=== PATIENT | male | born 1935 | race Caucasian/White ===

== ENCOUNTER 2020-02-29 14:36 | Inpatient (IN) | payer MEDICARE, OTHER ==
--- NOTE | 2020-02-29 15:34 | ER Document Report ---
ED Dizziness/Weakness - General Chief Complaint: Low Blood Pressure Stated Complaint: DIZZINESS Time Seen by Provider: 02/29/20 15:09 TRAVEL OUTSIDE OF THE [place] IN LAST 30 DAYS: No - HPI Patient complains to provider of: Dizziness, Weakness Onset: Last week Notes: Patient is an 84-year-old male with a past medical history of COPD, mild aortic stenosis, diabetes who presents with dizziness. Patient states that he has been dizzy for "quite a while". He states it is worse when he stands up. He states that the other day he walked a short distance to the bathroom and was very weak and lowered himself to the ground. He did not hit his head. Denies recent illnesses. He went to his PCP today who sent patient to the ED as he was noted to have hypotension in the office. Per EMS, his blood pressure was 90/50 from their documentation. Received a fluid bolus. Blood pressure is within normal limits in the ER on arrival. Patient states that he has been cutting his blood pressure medicine in half as directed by the doctor. Last had an echo in 2019 which showed moderate aortic stenosis and an ejection fraction of 55%. - Related Data Allergies/Adverse Reactions: No Known Allergies Allergy (Unverified 07/25/14 20:40) Home Medications: Advair, Albuterol, Aspirin, Clopidogrel, Metoprolol, Proair, Prozac, Spiriva, Terazosin, Trelegy, Linzess Past Medical History - General Information source: Patient - Social History Smoking Status: Former Smoker Frequency of alcohol use: Occasional Family History: Reviewed & Not Pertinent - Immunizations Hx Pneumococcal Vaccination: 05/17/13 Review of Systems - Review of Systems Notes: CONSTITUTIONAL: No fever or weight loss. SKIN: No rash. HENT: No congestion, ear pain, or sore throat. EYES: No recent vision problems or eye pain. ENDOCRINE: No polyuria or polydipsia. CARDIOVASCULAR: No chest pain or edema. RESPIRATORY: No cough. Positive for exertional dyspnea. GASTROINTESTINAL: No abdominal pain, nausea, vomiting, bloody stools or diarrhea. GENITOURINARY: No dysuria. MUSCULOSKELETAL: No joint pain or swelling. LYMPHATIC: No swollen glands. NEUROLOGIC: No seizures. No headache, focal weakness or sensory changes. Positive for dizziness when standing. HEMATOLOGIC: No unusual bruising or bleeding. PSYCHIATRIC: No depression or anxiety. Physical Exam - Vital signs Vitals: Resp Pulse Ox 20 99 02/29/20 14:48 02/29/20 14:48 Interpretation: Normal - Notes Notes: VITAL SIGNS: Within normal limits. GENERAL: No acute distress, non-toxic appearance. HEAD: Normal with no signs of head trauma. EYES: EOMI, conjunctiva normal, no discharge. EARS: Hearing grossly intact. NOSE: Normal. NECK: Normal range of motion, no tenderness, supple, no lymphadenopathy, No adenopathy, no JVD. CHEST: Clear breath sounds bilaterally. No wheezes, rales, or rhonchi. CARDIAC: Regular rate and rhythm. VASCULAR: No Edema. ABDOMEN: Normal and soft with no tenderness GENITOURINARY: Normal, No tenderness LYMPATHTIC: No lymphadenopathy noted. MUSCULOSKELETAL: Good range of motion of all major joints. Extremities without clubbing, cyanosis or edema. NEUROLOGICAL: Alert and oriented x 3. No focal sensory or strength deficits. Speech normal. Follows commands appropriately. Moves all extremities equally. PSYCHIATRIC: Normal Affect, judgement and mood. SKIN: Normal appearance with no rashes or lesions. Course - Re-evaluation Re-evalutation: 02/29/20 15:36 Patient appears well on exam. He has no focal neurological deficits. No dizziness with horizontal eye movements. Patient denies being dizzy at rest. He states he gets short of breath and dizzy when walking. He does have a history of moderate aortic stenosis. It is possible that he has worsening of this. We will obtain a cardiac work-up and a head CT. Likely patient will need to be admitted for further work-up. Patient's second EKG also shows accelerated junctional escape rhythm. I discussed with cardiology who stated he may need to be weaned off his metoprolol. He continues to be asymptomatic unless he sits or stands. We did obtain orthostatic vitals with laying and sitting and they were normal. Patient was too dizzy to stand so I did not perform standing orthostatics. I discussed with the hospitalist for admission as his symptoms might be due to worsening of aortic stenosis versus bradycardia from metoprolol. He will be admitted for further work-up. 02/29/20 17:30 - Vital Signs Vital signs: Temp Pulse Resp BP Pulse Ox 98.2 F 57 L 14 137/74 H 98 02/29/20 20:03 02/29/20 14:54 02/29/20 19:01 02/29/20 19:01 02/29/20 19:01 - Laboratory Result Diagrams: 02/29/20 14:50 02/29/20 14:50 Laboratory results interpreted by me: 02/29/20 02/29/20 02/29/20 14:50 14:50 14:52 WBC 11.2 H RBC 3.82 L Hgb 11.9 L Hct 35.6 L RDW 14.5 H Sodium 136.2 L BUN 46 H Creatinine 2.54 H Est GFR ( Amer) 29 L Est GFR (MDRD) Non-Af 24 L Glucose 114 H POC Glucose 115 H Direct Bilirubin 0.6 H - Diagnostic Test Radiology reviewed: Image reviewed, Reports reviewed - EKG Interpretation by Me EKG shows normal: Sinus rhythm Rate: Normal When compared to previous EKG there are: No significant change Additional EKG results interpreted by me: 02/29/20 16:57 Sinus rhythm at a rate of 60 vs accelerated junctional escape rhythm. QTc 444. No acute ST changes. EKG is similar to previous 02/29/20 17:33 Repeat EKG shows accelerated junctional escape rhythm versus sinus rhythm with small P waves. QTc 439. No acute ST changes. Discharge - Discharge Clinical Impression: Dizziness, Weakness, Bradycardia Condition: Stable Disposition: ADMITTED INPATIENT Admitting Provider: Hazel (Hospitalist) Unit Admitted: Telemetry
--- NOTE | 2020-02-29 16:17 | RADIOLOGY REPORT (SQ) ---
EXAM DESCRIPTION: CHEST SINGLE VIEW IMAGES COMPLETED DATE/TIME: 02/29/2020 3:57 pm REASON FOR STUDY: weakness COMPARISON: 07/25/2014 TECHNIQUE: Single frontal radiographic view of the chest acquired. NUMBER OF VIEWS: One view. LIMITATIONS: Defibrillator pads. FINDINGS: LUNGS AND PLEURA: No pneumothorax. Mild increased interstitial thickening in the parahila r regions. No consolidation or pleural effusion. MEDIASTINUM AND HILAR STRUCTURES: Similar tortuosity of the thoracic aorta. HEART AND VASCULAR STRUCTURES: Stable. BONES: No acute findings. HARDWARE: None in the chest. OTHER: No other significant finding. IMPRESSION: Mild increased interstitial thickening in the parahilar regions. No consolidation or pl eural effusion. TECHNICAL DOCUMENTATION: JOB ID: [id number] [place]-[address] [employer]- All Rights Reserved Reading location - IP/workstation name: [email or web address]
--- NOTE | 2020-02-29 16:22 | RADIOLOGY REPORT (SQ) ---
EXAM DESCRIPTION: CT HEAD WITHOUT IMAGES COMPLETED DATE/TIME: 02/29/2020 4:09 pm REASON FOR STUDY: weakness COMPARISON: 02/02/2008. TECHNIQUE: Axial images acquired through the brain without intravenous contrast. Images reviewed wi th bone, brain and subdural windows. Additional sagittal and coronal reconstructions were generated. Images stored on PACS. All CT scanners at this facility use dose modulation, iterative reconstruction, and/or weight based d osing when appropriate to reduce radiation dose to as low as reasonably achievable (ALARA). [facility]: Dose Right [facility]: CareDose [facility]: Dose Right [facility]: Teradose 4D [facility]: Aut[employer] RADIATION DOSE: CT Rad equipment meets quality standard of care and radiation dose reduction techniq ues were employed. CTDIvol: 53.2 mGy. DLP: 1070 mGy-cm.mGy. LIMITATIONS: None. FINDINGS: VENTRICLES: Prominent. CEREBRUM: No masses. No hemorrhage. No midline shift. Areas of low density in the white matter mos t likely due to chronic micro-vascular ischemic change. No evidence for acute infarction. CEREBELLUM: No masses. No hemorrhage. No alteration of density. No evidence for acute infarction. EXTRAAXIAL SPACES: Age-related involutional change. No fluid collections. No masses. ORBITS AND GLOBE: No intra- or extraconal masses. Normal contour of globe without masses. CALVARIUM: No fracture. PARANASAL SINUSES: No fluid. Chronic deformity of the right maxillary sinus with mucous membrane thi ckening. SOFT TISSUES: No mass or hematoma. OTHER: No other significant finding. IMPRESSION: CHRONIC CHANGES OF ATROPHY AND MICROVASCULAR ISCHEMIA. NO ACUTE PROCESS. EVIDENCE OF ACUTE STROKE: NO. TECHNICAL DOCUMENTATION: JOB ID: [id number] Quality ID # [id number]: Final reports with documentation of one or more dose reduction techniques (e.g., Au tomated exposure control, adjustment of the mA and/or kV according to patient size, use of iterative reconstruction technique) 2010 [employer]- All Rights Reserved Reading location - IP/workstation name: [email or web address]
[2020-02-29 16:24] LABS: ABSOLUTE EOSINOPHILS # (AUTO) 0.1 10^3/uL (0.0-0.6); ABSOLUTE LYMPHOCYTES (AUTO) 2.5 10^3/uL (0.5-4.7); ABSOLUTE MONOCYTES (AUTO) 1.1 10^3/uL (0.1-1.4); ABSOLUTE NEUT (AUTO) 7.4 10^3/uL (1.7-8.2); BASOPHILS % (AUTO) 0.3 % (0-2); HEMATOCRIT 35.6 % (37.9-51.0); HEMOGLOBIN 11.9 g/dL (13.5-17.0); LYMPHOCYTES % (AUTO) 22.4 % (13-45); MEAN CORPUSCULAR HEMOGLOBIN 31.2 pg (27.0-33.4); MEAN CORPUSCULAR HGB CONC 33.5 g/dL (32.0-36.0); MEAN CORPUSCULAR VOLUME 93 fl (80-97); MONOCYTES % (AUTO) 9.7 % (3-13); PLATELET COUNT 219 10^3/uL (150-450); RED BLOOD COUNT 3.82 10^6/uL (4.35-5.55); RED CELL DISTRIBUTION WIDTH 14.5 % (11.5-14.0); SEGMENTED NEUTROPHILS % (AUTO) 66.6 % (42-78); TOTAL CELLS COUNTED % (AUTO) 100 %; WHITE BLOOD COUNT 11.2 10^3/uL (4.0-10.5)
[2020-02-29 16:46] LABS: ALBUMIN 3.6 g/dL (3.5-5.0); ALKALINE PHOSPHATASE 56 U/L (38-126); ANION GAP 8 (5-19); ASPARTATE AMINO TRANSFERASE 32 U/L (17-59); BILIRUBIN,DIRECT 0.6 mg/dL (0.0-0.4); BILIRUBIN,TOTAL 0.8 mg/dL (0.2-1.3); BLOOD UREA NITROGEN 46 mg/dL (7-20); CARBON DIOXIDE 23 mmol/L (22-30); CHLORIDE 105 mmol/L (98-107); GLUCOSE 114 mg/dL (75-110); POTASSIUM 4.9 mmol/L (3.6-5.0); TOTAL PROTEIN 6.4 g/dL (6.3-8.2)
[2020-02-29] MEDS ORDERED: MAG HYDROX/AL HYDROX/SIMETH SUSP 30 ML UDCUP PO PRN (19:37)
[2020-02-29] MEDS ORDERED: ONDANSETRON 4 MG TAB.RAPDIS PO PRN (19:37)
[2020-02-29] MEDS ORDERED: MAGNESIUM HYDROXIDE SUSP 30 ML UDCUP PO PRN (19:37)
[2020-02-29] MEDS ORDERED: ZOLPIDEM TARTRATE 5 MG TABLET PO PRN (19:37)
[2020-02-29] MEDS ORDERED: ACETAMINOPHEN 325 MG TABLET PO PRN (19:37)
[2020-02-29] MEDS ORDERED: ALBUTEROL SULFATE 0.083% NEB 2.5 MG/3 ML AMPUL NEB PRN (19:47)
[2020-02-29] MEDS ORDERED: IPRATROPIUM BROMIDE 0.02% NEB 0.5 MG/2.5 ML AMPUL NEB PRN (19:49)
[2020-02-29] MEDS ORDERED: ALBUTEROL SULFATE HFA (90 MCG/PUFF) 8 GM MDI IH PRN (19:51)
--- NOTE | 2020-02-29 20:48 | PDOC H&P ---
History of Present Illness Admission Date/PCP: 02/29/20 18:39 AMY MOREJON Patient complains of: Dizziness, weakness History of Present Illness: CORNELIO JOHNSON is a 84 year old male with PMHx of COPD, mild aortic stenosis, CKD, HTN, and diet controlled diabetes who presented to the ED on 02/29/2020 under his PCP's instruction as pt was found to be hypotension on presentation. Per EMS pt BP 90/50. Pt was at PCP for evaluation of dizziness and generalized weakness. Per patient he has felt dizzy for several months with a progressive increase in severity. He experiences symptoms primarily when moving from a seated position to standing position. Pt notes recent episode where he walked a short distance to the bathroom and felt so weak that he had to lower himself to the ground. Denies fall or head trauma. He is asymptomatic while at rest. He since has been using a walker to ambulate for support. He reports SOB with exertion, this is relatively new for him. Denies orthopnea or lower extremity swelling. He has had a non-productive cough for several months, denies recent illness. He does report a gradual weight gain, primarily in his abdomen, which he relates to his children feeding him too much food. Upon further questioning Denies fever, chills, chest pain, palpitations, lower extremity edema. abdominal pain, NVD, or urinary symptoms. Evaluation in the ED pt was found to have elevated WBC (11.2), and normocytic normochronic anemia with Hgb 11.9. Chemistries significant for hyponatremia (136.2), minimally elevated glucose (115), and acute kidney injury (BUN 46, Cr 2.54). Consecutive EKGs showed bradycardia with rate in 50s with accelerate junctional escape rhythm. CXR with mild increased interstitial thickening in the parahilar regions, without consolidation or pleural effusion. Head CT showed chronic changes of atrophy and microvascular ischemia, without acute changes or evidence of stroke. Pt was treated with IVF and the hospitalist team was contacted for further evaluation and treatment of patient. Pt's records from PCP were obtained and reviewed. Included in obtained reports was pt's echocardiogram from 03/29/2019 with the LVEF 55% with abnormal trileadlet aortic valve and moderate aortic stenosis. Past Medical History Cardiac Medical History: Reports: Coronary Artery Disease, Hyperlipidema, Hypertension Pulmonary Medical History: Reports: Chronic Obstructive Pulmonary Disease (COPD) Neurological Medical History: Denies: Hemorrhagic CVA, Ischemic CVA Endocrine Medical History: Reports: Diabetes Mellitus Type 2 - diet controlled Renal/ Medical History: Reports: Chronic Kidney Disease GI Medical History: Denies: Gastroesophageal Reflux Disease Musculoskeltal Medical History: Denies: Fibromyalgia Psychiatric Medical History: Denies: Tobacco Dependency Past Surgical History Past Surgical History: Denies: Internal Defibrillator, Pacemaker Social History Information Source: Patient Lives with: Alone - Children alternate spending the night with him Smoking Status: Former Smoker Electronic Cigarette use?: No Frequency of Alcohol Use: None Hx Recreational Drug Use: No Drugs: None Hx Prescription Drug Abuse: No - Advance Directive Resuscitation Status: Do Not Resuscitate Family History Family History: CAD, Other - Heart disease Parental Family History Reviewed: Yes Children Family History Reviewed: Yes Sibling(s) Family History Reviewed.: Yes Medication/Allergy Home Medications: Acetaminophen [Tylenol] 650 mg PO Q4 07/26/14 Alprazolam [Xanax 0.5 mg Tablet] 0.5 mg PO DAILY PRN 07/26/14 Aspirin [Aspirin 81 mg Chewable Tablet] 81 mg PO DAILY 07/26/14 Clopidogrel Bisulfate [Plavix 75 mg Tablet] 75 mg PO DAILY 07/26/14 Hydrochlorothiazide [Hydrodiuril 25 mg Tablet] 25 mg PO DAILY 07/26/14 Lansoprazole [Prevacid] 15 mg PO DAILY 07/26/14 Metoprolol Succinate [Toprol Xl 50 mg Tab.sr] 50 mg PO DAILY 07/26/14 Mirtazapine 15 mg PO DAILY 07/26/14 Nifedipine [Nifedipine ER] 30 mg PO BID 07/26/14 Pravastatin Sodium [Pravachol] 40 mg PO HSP 07/26/14 Sitagliptin Phosphate [Januvia 50 mg Tablet] 50 mg PO DAILY 07/26/14 Terazosin HCl 1 mg PO BID 07/26/14 Fluticasone/Salmeterol [Advair 250-50 Diskus 14 Dose/Diskus] 1 inh IH Q12 #0 inhaler 07/28/14 Guaifenesin [Mucinex Sr 600 mg Tablet.sa] 1,200 mg PO Q12 #0 tablet.sa 07/28/14 Isosorbide Mononitrate [Isosorbide Mononitrate ER] 60 mg PO DAILY #0 tab.er.24h 07/28/14 Levofloxacin [Levaquin 750 mg Tablet] 750 mg PO Q2D@2200 #0 tablet 07/28/14 Allergies/Adverse Reactions: No Known Allergies Allergy (Unverified 07/25/14 20:40) Review of Systems Constitutional: PRESENT: weakness, weight gain. ABSENT: anorexia, chills, fatigue, fever(s), headache(s) Eyes: PRESENT: visual disturbances Ears: ABSENT: hearing changes Nose, Mouth, and Throat: ABSENT: headache(s) Cardiovascular: PRESENT: dyspnea on exertion. ABSENT: chest pain, edema, orthropnea, palpitations Respiratory: PRESENT: cough, dyspnea. ABSENT: sputum Gastrointestinal: ABSENT: abdominal pain, bloating, heartburn, nausea, vomiting Genitourinary: ABSENT: dysuria, hematuria Musculoskeletal: PRESENT: muscle weakness - lower extremity weakness. ABSENT: back pain Integumentary: ABSENT: diaphoresis, lesions, pruritus Neurological: PRESENT: dizziness, weakness. ABSENT: abnormal movements, abnormal speech, confusion, convulsions, frequent falls, numbness, paresthesias, syncope, tingling, tremor(s) Psychiatric: ABSENT: homidical ideation, suicidal ideation Endocrine: ABSENT: cold intolerance, heat intolerance Hematologic/Lymphatic: ABSENT: easy bleeding, easy bruising Physical Exam Vital Signs: Temp Pulse Resp BP Pulse Ox 98.1 F 57 L 14 137/74 H 98 02/29/20 14:54 02/29/20 14:54 02/29/20 19:01 02/29/20 19:01 02/29/20 19:01 Intake & Output 02/28/20 02/29/20 03/01/20 06:59 06:59 06:59 Weight 108.6 kg General appearance: PRESENT: no acute distress, cooperative, hard of hearing, obese Head exam: PRESENT: atraumatic, normocephalic Eye exam: PRESENT: conjunctiva pink, EOMI. ABSENT: scleral icterus Ear exam: PRESENT: normal external ear exam, TM's normal bilaterally. ABSENT: bleeding, drainage Mouth exam: PRESENT: dry mucosa, tongue midline Neck exam: PRESENT: full ROM. ABSENT: JVD, lymphadenopathy, tenderness Respiratory exam: PRESENT: clear to auscultation carlos a. ABSENT: rhonchi, wheezes Cardiovascular exam: PRESENT: RRR Pulses: PRESENT: normal radial pulses GI/Abdominal exam: PRESENT: normal bowel sounds, soft. ABSENT: distended, firm, guarding, tenderness Extremities exam: PRESENT: full ROM. ABSENT: calf tenderness, clubbing, pedal edema Musculoskeletal exam: PRESENT: ambulatory, full ROM. ABSENT: deformity, dislocation Neurological exam: PRESENT: alert, awake, oriented to person, oriented to place, oriented to time, oriented to situation, CN II-XII grossly intact. ABSENT: altered, motor sensory deficit Psychiatric exam: PRESENT: appropriate affect, normal mood. ABSENT: anxious Skin exam: PRESENT: dry, intact, warm. ABSENT: pallor, rash Results Laboratory Results: 02/29/20 14:50 02/29/20 14:50 02/29/20 02/29/20 14:50 14:50 WBC 11.2 H RBC 3.82 L Hgb 11.9 L Hct 35.6 L MCV 93 MCH 31.2 MCHC 33.5 RDW 14.5 H Plt Count 219 Seg Neutrophils % 66.6 Sodium 136.2 L Potassium 4.9 Chloride 105 Carbon Dioxide 23 Anion Gap 8 BUN 46 H Creatinine 2.54 H Est GFR ( Amer) 29 L Glucose 114 H Calcium 9.0 Magnesium 2.1 Total Bilirubin 0.8 AST 32 Alkaline Phosphatase 56 Total Protein 6.4 Albumin 3.6 02/29/20 14:50 Troponin I < 0.012 Impressions: Chest X-Ray 02/29/20 15:23 IMPRESSION: Mild increased interstitial thickening in the parahilar regions. No consolidation or pleural effusion. Head CT 02/29/20 15:23 IMPRESSION: CHRONIC CHANGES OF ATROPHY AND MICROVASCULAR ISCHEMIA. NO ACUTE PROCESS. EVIDENCE OF ACUTE STROKE: NO. Assessment and Plan - Diagnosis (1) Dizziness Is this a current diagnosis for this admission?: Yes Plan: Etiology unknown at this time. Ddx: Worsening of aortic stenosis vs bradycardia (secondary to metoprolol) vs dehydration vs orthostatic hypotension CT negative Echo from 03/2019 reviewed. Repeat echocardiogram ordered. Cardiology consulted, on board. Will decrease metoprolol gradually, with plan to wean off. (2) Weakness Is this a current diagnosis for this admission?: Yes Plan: Etiology unknown at this time. Ddx: Worsening of aortic stenosis vs bradycardia (secondary to metoprolol) Investigation as discussed above PT consulted, will evaluate OT consulted, will evaluate (3) Bradycardia Is this a current diagnosis for this admission?: Yes Plan: HR in the 50s on exam Cardiology consulted, on board Wean off Metoprolol Monitor with telemetry (4) Leukocytosis Qualifiers: Leukocytosis type: unspecified Qualified Code(s): D72.829 - Elevated white blood cell count, unspecified Is this a current diagnosis for this admission?: Yes Plan: Minimally elevated WBC 11.2 CXR without consolidation UA pending UC pending BC pending Pt afebrile at this time Repeat CBC in the morning (5) Acute kidney injury superimposed on chronic kidney disease Is this a current diagnosis for this admission?: Yes Plan: BUN 46, Cr 2.54 Previous records reviewed Baseline BUN ~30 Baseline Cr ~1.60 Suspect secondary to dehydration IVF Monitor on chemistries in the morning (6) Aortic stenosis with trileaflet valve Is this a current diagnosis for this admission?: Yes Plan: As noted on most recent Echo 03/2019 Potential cause of symptoms if worsening Repeat echo pending Cardiology on board (7) CAD (coronary artery disease) Qualifiers: Coronary Disease-Associated Artery/Lesion type: [place] artery [place] vs. transplanted heart: [place] heart Associated angina: without angina Qualified Code(s): I25.10 - Atherosclerotic heart disease of [place] coronary artery with out angina pectoris Is this a current diagnosis for this admission?: Yes Plan: Hx of CAD Currently asymptomatic Resume home medications at this time (8) HLD (hyperlipidemia) Qualifiers: Hyperlipidemia type: moderate mixed hyperlipidemia not requiring statin therapy Qualified Code(s): E78.2 - Mixed hyperlipidemia Is this a current diagnosis for this admission?: Yes Plan: Resume home dose statin (9) HTN (hypertension) Qualifiers: Hypertension type: essential hypertension Qualified Code(s): I10 - Essential (primary) hypertension Is this a current diagnosis for this admission?: Yes Plan: Reportedly hypotensive on exam at PCPs office BP in 130s/80s consistently Per pt, PCP is weaning him off BP medications at this time Will hold BP medications Closely monitor (10) Diet-controlled diabetes mellitus Is this a current diagnosis for this admission?: Yes Plan: Per pt hx of DM, not currently treating with medications Hem A1c ordered Routine ACCU-checks Pt placed on diabetic diet - Time Time Spent with patient: 35 or more minutes Medications reviewed and adjusted accordingly: Yes Anticipated Discharge Disposition: Home with Home Health Anticipated Discharge Timeframe: within 72 hours - Inpatient Certification Based on my medical assessment, after consideration of the patient's comorbidities, presenting symptoms, or acuity I expect that the services needed warrant INPATIENT care.: Yes I certify that my determination is in accordance with my understanding of Medicare's requirements for reasonable and necessary INPATIENT services [42 CFR 412.3e].: Yes Medical Necessity: Failure to Improve With Outpatient Therapy, Significant Comorbidiites Make Outpatient Treatment Too Risky, Need Close Monitoring Due to Risk of Patient Decompensation, Need For Continuous Telemetry Monitoring, Risk of Complication if Not Cared For in Hospital, Risk of Diagnosis Which Will Require Inpatient Eval/Care/Monitoring Post Hospital Care: D/C or Transfer Summary
[2020-02-29 21:50] LABS: APPEARANCE,URINE CLEAR; BILIRUBIN,URINE NEGATIVE (NEGATIVE); COLOR,URINE YELLOW; GLUCOSE, URINE NEGATIVE (NEGATIVE); KETONES,URINE NEGATIVE (NEGATIVE); LEUKOCYTE ESTERASE,URINE NEGATIVE (NEGATIVE); NITRITE,URINE NEGATIVE (NEGATIVE); PROTEIN,URINE NEGATIVE (NEGATIVE); URINE SPECIFIC GRAVITY 1.011; UROBILINOGEN,URINE NEGATIVE mg/dL (<2.0)
--- NOTE | 2020-02-29 21:51 | EKG REPORT ---
SEVERITY:- ABNORMAL ECG - SINUS RHYTHM : Confirmed by: Yaritza De Jesus 29-Feb-2020 21:50:57
--- NOTE | 2020-02-29 21:51 | EKG REPORT ---
SEVERITY:- ABNORMAL ECG - SINUS RHYTHM BORDERLINE T ABNORMALITIES, ANT-LAT LEADS : Confirmed by: Yaritza De Jesus 29-Feb-2020 21:50:40
[2020-02-29] MEDS: MONTELUKAST SODIUM 10 MG TABLET PO SCH (22:33)
[2020-02-29] MEDS: ATORVASTATIN CALCIUM 40 MG TABLET PO SCH (22:33)
[2020-02-29] MEDS: HEPARIN SOD (PORCINE) 5,000 UNIT/ML 1 ML VIAL SUBCUT SCH (22:33)
[2020-03-01] MEDS ORDERED: HYDRALAZINE HCL INJ/PF 20 MG/1 ML SDV IV PRN (01:17)
[2020-03-01] MEDS: RINGERS SOLUTION,LACTATED 1,000 ML IV PRN ×3 (01:51→19:00)
[2020-03-01] MEDS: HEPARIN SOD (PORCINE) 5,000 UNIT/ML 1 ML VIAL SUBCUT SCH ×3 (05:25→21:54)
[2020-03-01 06:10] LABS: HEMATOCRIT 36.8 % (37.9-51.0); HEMOGLOBIN 12.7 g/dL (13.5-17.0); MEAN CORPUSCULAR HEMOGLOBIN 31.9 pg (27.0-33.4); MEAN CORPUSCULAR HGB CONC 34.6 g/dL (32.0-36.0); MEAN CORPUSCULAR VOLUME 92 fl (80-97); PLATELET COUNT 204 10^3/uL (150-450); RED BLOOD COUNT 3.98 10^6/uL (4.35-5.55); RED CELL DISTRIBUTION WIDTH 14.8 % (11.5-14.0); WHITE BLOOD COUNT 10.7 10^3/uL (4.0-10.5)
[2020-03-01 06:33] LABS: ANION GAP 9 (5-19); BLOOD UREA NITROGEN 47 mg/dL (7-20); CALCIUM 9.2 mg/dL (8.4-10.2); CARBON DIOXIDE 24 mmol/L (22-30); CHLORIDE 104 mmol/L (98-107); GLUCOSE 101 mg/dL (75-110); POTASSIUM 4.6 mmol/L (3.6-5.0)
[2020-03-01] MEDS ORDERED: INFLUENZA QUAD (6MOS+) 2020-21 VAC 0.5 ML SYR IM ONE (08:00)
[2020-03-01] MEDS: ASPIRIN 81 MG TABLET, CHEWABLE PO SCH (10:05)
[2020-03-01] MEDS: CLOPIDOGREL BISULFATE 75 MG TABLET PO SCH (10:05)
[2020-03-01] MEDS: FLUTICASONE/UMECLIDIN/VILANTER 100-62.5-25 MCG/DOSE IH SCH (10:07)
--- NOTE | 2020-03-01 13:22 | PDOC CONSULTATION ---
Consultation Consult Date: 03/01/20 Attending physician:: SHAW TREJO Provider Consulted: FOSTER AGUILAR Consult reason:: Dizziness, aortic stenosis History of Present Illness Admission Date/PCP: 02/29/20 18:39 AMY MOREJON Patient complains of: Dizziness History of Present Illness: CORNELIO JOHNSON is a 84 year old male With the following active problems 1. Aortic stenosis 2. Systemic hypertension 3. Dyslipidemia Patient was sent in from the primary care physician's office with complaints of dizziness. Patient is not a great historian. He is not unable to relate any symptoms at the moment. He indicates that this dizziness has improved. Overnight telemetry has been unremarkable for any pauses or profound bradycardia. His resting heart rate and average heart rate is probably in the mid 40s to 50 bpm range His EKG shows some conduction disease with first-degree AV block. Apparently he is known to have mild aortic stenosis. There is an echocardiogram from 2015 which demonstrates this and his ejection fraction at that time was preserved. Patient denies any history of syncope or presyncope He does not smoke cigarettes No familial illnesses chronicled. Review of systems positive for dizziness Negative for chest pain or dyspnea. Negative for palpitations. Past Medical History Cardiac Medical History: Reports: Coronary Artery Disease, Hyperlipidema, Hypertension Pulmonary Medical History: Reports: Chronic Obstructive Pulmonary Disease (COPD) Neurological Medical History: Denies: Hemorrhagic CVA, Ischemic CVA Endocrine Medical History: Reports: Diabetes Mellitus Type 2 - diet controlled Renal/ Medical History: Reports: Chronic Kidney Disease GI Medical History: Denies: Gastroesophageal Reflux Disease Musculoskeltal Medical History: Denies: Fibromyalgia Psychiatric Medical History: Denies: Depression, Tobacco Dependency Past Surgical History Past Surgical History: Denies: Internal Defibrillator, Pacemaker Social History Lives with: Alone - Children alternate spending the night with him Smoking Status: Former Smoker Cigarettes Packs Per Day: 1 Electronic Cigarette use?: No Cigars Per Day: 1 Number of Years Smokin Last Time Smoked: 1998 Frequency of Alcohol Use: Occasional Hx Recreational Drug Use: No Drugs: None Hx Prescription Drug Abuse: No - Advance Directive Resuscitation Status: Do Not Resuscitate Family History Family History: Reviewed & Not Pertinent Parental Family History Reviewed: Yes - No familial illnesses Children Family History Reviewed: NA Sibling(s) Family History Reviewed.: NA Medication/Allergy Home Medications: Acetaminophen [Tylenol] 650 mg PO Q4 07/26/14 Aspirin [Aspirin 81 mg Chewable Tablet] 81 mg PO DAILY 07/26/14 Clopidogrel Bisulfate [Plavix 75 mg Tablet] 75 mg PO DAILY 07/26/14 Pravastatin Sodium [Pravachol] 40 mg PO HSP 07/26/14 Terazosin HCl 2 mg PO BID 07/26/14 Albuterol Sulfate [Proair Hfa Inhalation Aerosol 8.5 gm Mdi] 1 puff IH Q4 PRN 02/29/20 Albuterol Sulfate [Ventolin 0.083% Neb 2.5 mg/3 ml Ampul] 1 vial NEB Q6 02/29/20 Fluoxetine HCl [Prozac 20 mg Capsule] 20 mg PO DAILY 02/29/20 Fluticasone/Umeclidin/Vilanter [Trelegy 100-62.5-25 Mcg Ellipta 14 Dose/Dpi] 1 each PO DAILY 02/29/20 Ipratropium/Albuterol Sulfate [Duoneb 3 ml Ampul] 3 ml NEB RTQ6 02/29/20 Linaclotide [Linzess] 72 mcg PO DAILY 02/29/20 Metoprolol Succinate [Toprol Xl 25 mg Tab.sr] 25 mg PO DAILY 02/29/20 Montelukast Sodium [Singulair 10 mg Tablet] 10 mg PO QHS 02/29/20 Allergies/Adverse Reactions: No Known Allergies Allergy (Unverified 07/25/14 20:40) Review of Systems Cardiovascular: ABSENT: as per HPI, chest pain, dyspnea on exertion, edema, orthropnea, palpitations, other Respiratory: ABSENT: as per HPI, cough, dyspnea, hemoptysis, sputum, other Gastrointestinal: ABSENT: as per HPI, abdominal pain, bloating, coffee ground emesis, constipation, diarrhea, dysphagia, heartburn, hematemesis, hematochezia, melena, nausea, vomiting, other Neurological: PRESENT: other - Dizziness is reported Physical Exam Vital Signs: Temp Pulse Resp BP Pulse Ox 97.6 F 65 20 143/86 H 99 03/01/20 11:00 03/01/20 11:00 03/01/20 11:00 03/01/20 11:00 03/01/20 11:00 Intake & Output 02/29/20 03/01/20 03/02/20 06:59 06:59 06:59 Intake Total 1000 Output Total 200 Balance -200 1000 Weight 104.7 kg General appearance: PRESENT: no acute distress, cooperative, obese, well- developed, well-nourished Head exam: PRESENT: atraumatic, normocephalic Eye exam: PRESENT: conjunctiva pink, EOMI Mouth exam: PRESENT: moist Respiratory exam: PRESENT: symmetrical, unlabored Cardiovascular exam: PRESENT: RRR, +S1, +S2 Pulses: PRESENT: normal radial pulses GI/Abdominal exam: PRESENT: soft Rectal exam: PRESENT: deferred Neurological exam: PRESENT: alert, awake, oriented to person, oriented to place, oriented to time, oriented to situation Psychiatric exam: PRESENT: appropriate affect Skin exam: PRESENT: dry, intact, normal color Results Laboratory Results: 03/01/20 05:32 03/01/20 05:32 02/29/20 02/29/20 02/29/20 14:50 14:50 21:18 WBC 11.2 H RBC 3.82 L Hgb 11.9 L Hct 35.6 L MCV 93 MCH 31.2 MCHC 33.5 RDW 14.5 H Plt Count 219 Seg Neutrophils % 66.6 Sodium 136.2 L Potassium 4.9 Chloride 105 Carbon Dioxide 23 Anion Gap 8 BUN 46 H Creatinine 2.54 H Est GFR ( Amer) 29 L Glucose 114 H Calcium 9.0 Magnesium 2.1 Total Bilirubin 0.8 AST 32 Alkaline Phosphatase 56 Total Protein 6.4 Albumin 3.6 TSH Urine Color YELLOW Urine Appearance CLEAR Urine pH 6.0 Ur Specific [place] 1.011 Urine Protein NEGATIVE Urine Glucose (UA) NEGATIVE Urine Ketones NEGATIVE Urine Blood NEGATIVE Urine Nitrite NEGATIVE Ur Leukocyte Esterase NEGATIVE Urine WBC (Auto) 0 03/01/20 03/01/20 03/01/20 05:32 05:32 05:32 WBC 10.7 H RBC 3.98 L Hgb 12.7 L Hct 36.8 L MCV 92 MCH 31.9 MCHC 34.6 RDW 14.8 H Plt Count 204 Seg Neutrophils % Sodium 136.8 L Potassium 4.6 Chloride 104 Carbon Dioxide 24 Anion Gap 9 BUN 47 H Creatinine 2.44 H Est GFR ( Amer) 31 L Glucose 101 Calcium 9.2 Magnesium 2.1 Total Bilirubin AST Alkaline Phosphatase Total Protein Albumin TSH 2.53 Urine Color Urine Appearance Urine pH Ur Specific [place] Urine Protein Urine Glucose (UA) Urine Ketones Urine Blood Urine Nitrite Ur Leukocyte Esterase Urine WBC (Auto) 02/29/20 14:50 Troponin I < 0.012 EKG Comments: Twelve-lead EKG 02/29/2020. Independently viewed by me. Sinus rhythm, 60 bpm, first-degree AV block, IVCD, QTC 444 ms Twelve-lead EKG 02/29/2020 1712 Sinus bradycardia, first-degree AV block, IVCD, QTC is 439 ms Transthoracic echocardiogram images were reviewed The aortic valve has probably mild stenosis. Peak aortic velocity is 103 m/s and a mean gradient is approximately 14 mmHg. This is suggestive of mild aortic stenosis. Visually the mitral valve appears to be stenotic. The The left ventricle ejection fraction is preserved. The right ventricle is not adequately visualized but appears to have normal fu nction The left atrium is mildly enlarged There is no pericardial effusion Impressions: Chest X-Ray 02/29/20 15:23 IMPRESSION: Mild increased interstitial thickening in the parahilar regions. No consolidation or pleural effusion. Head CT 02/29/20 15:23 IMPRESSION: CHRONIC CHANGES OF ATROPHY AND MICROVASCULAR ISCHEMIA. NO ACUTE PROCESS. EVIDENCE OF ACUTE STROKE: NO. Assessment & Plan - Diagnosis (1) Bradycardia Is this a current diagnosis for this admission?: Yes Plan: Bradycardia with heart rates mostly in the 50s and 40 bpm range This is unlikely to cause dizziness. EKG with mild conduction disease with first-degree AV block and IVCD which is also mild Aortic stenosis is mild by echocardiogram the mitral stenosis also visually appears to be mild although gradients were not performed across the valve. Any any rate would recommend that the beta-veronica be discontinued as more severe bradycardia may have contributed to dizziness In general if medication was being used for treatment of hypertension would recommend hydralazine or amlodipine for the same. I can arrange for an outpatient Holter monitor. (2) Dizziness Is this a current diagnosis for this admission?: Yes Plan: Dizziness is reported Orthostatic vital signs are pending at this time Would recommend discontinuing beta-blockade Stenotic lesions across the aortic valve appear to be mild and may not have contributed to these episodes. The mitral valve also appears to be stenotic but the Doppler interrogation is suboptimal. (3) HLD (hyperlipidemia) Qualifiers: Hyperlipidemia type: moderate mixed hyperlipidemia not requiring statin therapy Qualified Code(s): E78.2 - Mixed hyperlipidemia Is this a current diagnosis for this admission?: Yes Plan: Continue statin (4) HTN (hypertension) Qualifiers: Hypertension type: essential hypertension Qualified Code(s): I10 - Essential (primary) hypertension Is this a current diagnosis for this admission?: Yes Plan: For essential hypertension avoid beta-blockers and calcium channel blockers. Would prefer use of hydralazine or amlodipine which will not usually have negative chronotropic effects.
--- NOTE | 2020-03-01 16:33 | PDOC PROGRESS REPORT ---
Subjective Progress Note for:: 03/01/20 Subjective:: Patient seen on morning rounds. He is resting in the in his room. He states that is not very comfortable and proceeds to get up out of the chair ambulate to the restroom then to the bed without any reported dizziness or weakness. Asked how he is feeling patient states that overall he feels well. He continues to experience weakness/dizziness though states this is improved from yesterday. He mentions that he was seen by physical therapy earlier today and was able to walk the halls. He did note shortness of breath while ambulating, stating that this is just been normal for him lately. He inquires about when he will be able to go home and states that he did not sleep well at the bed last night. Otherwise denies fever, chills, headache, chest pain, palpitation, orthopnea, lower extremity swelling, abdominal pain, nausea/vomiting/diarrhea. Discussed case with patient's nurse. Nurse states that she has seen patient ambulate multiple occasions, sometimes using his walker sometimes not, denies patient complaining of dizziness. Reason For Visit: DIZZINESS,WEAKNESS Physical Exam Vital Signs: Temp Pulse Resp BP Pulse Ox 97.6 F 65 20 143/86 H 99 03/01/20 11:00 03/01/20 11:00 03/01/20 11:00 03/01/20 11:00 03/01/20 11:00 Intake & Output 02/29/20 03/01/20 03/02/20 06:59 06:59 06:59 Intake Total 1000 Output Total 200 Balance -200 1000 Weight 104.7 kg General appearance: PRESENT: no acute distress, cooperative, obese, other - Pleasant 84-year-old male. Head exam: PRESENT: atraumatic, normocephalic Eye exam: PRESENT: conjunctiva pink. ABSENT: conjunctiva pale, scleral icterus Mouth exam: PRESENT: moist, tongue midline Neck exam: PRESENT: full ROM. ABSENT: JVD, lymphadenopathy, tenderness Respiratory exam: PRESENT: clear to auscultation carlos a, symmetrical, unlabored. ABSENT: retraction, rhonchi, tachypnea, wheezes Cardiovascular exam: PRESENT: RRR, +S1, +S2 Pulses: PRESENT: normal radial pulses GI/Abdominal exam: PRESENT: normal bowel sounds, soft. ABSENT: distended, tenderness Extremities exam: PRESENT: full ROM. ABSENT: clubbing, pedal edema Musculoskeletal exam: PRESENT: ambulatory, full ROM. ABSENT: deformity, disl ocation Neurological exam: PRESENT: alert, awake, oriented to person, oriented to place, oriented to time, oriented to situation, CN II-XII grossly intact. ABSENT: altered, motor sensory deficit Psychiatric exam: PRESENT: appropriate affect, normal mood Skin exam: PRESENT: dry, intact, warm Results Laboratory Results: 03/01/20 05:32 03/01/20 05:32 02/29/20 02/29/20 02/29/20 14:50 14:50 21:18 WBC 11.2 H RBC 3.82 L Hgb 11.9 L Hct 35.6 L MCV 93 MCH 31.2 MCHC 33.5 RDW 14.5 H Plt Count 219 Seg Neutrophils % 66.6 Sodium 136.2 L Potassium 4.9 Chloride 105 Carbon Dioxide 23 Anion Gap 8 BUN 46 H Creatinine 2.54 H Est GFR ( Amer) 29 L Glucose 114 H Calcium 9.0 Magnesium 2.1 Total Bilirubin 0.8 AST 32 Alkaline Phosphatase 56 Total Protein 6.4 Albumin 3.6 TSH Urine Color YELLOW Urine Appearance CLEAR Urine pH 6.0 Ur Specific [place] 1.011 Urine Protein NEGATIVE Urine Glucose (UA) NEGATIVE Urine Ketones NEGATIVE Urine Blood NEGATIVE Urine Nitrite NEGATIVE Ur Leukocyte Esterase NEGATIVE Urine WBC (Auto) 0 03/01/20 03/01/20 03/01/20 05:32 05:32 05:32 WBC 10.7 H RBC 3.98 L Hgb 12.7 L Hct 36.8 L MCV 92 MCH 31.9 MCHC 34.6 RDW 14.8 H Plt Count 204 Seg Neutrophils % Sodium 136.8 L Potassium 4.6 Chloride 104 Carbon Dioxide 24 Anion Gap 9 BUN 47 H Creatinine 2.44 H Est GFR ( Amer) 31 L Glucose 101 Calcium 9.2 Magnesium 2.1 Total Bilirubin AST Alkaline Phosphatase Total Protein Albumin TSH 2.53 Urine Color Urine Appearance Urine pH Ur Specific [place] Urine Protein Urine Glucose (UA) Urine Ketones Urine Blood Urine Nitrite Ur Leukocyte Esterase Urine WBC (Auto) 02/29/20 14:50 Troponin I < 0.012 Impressions: Chest X-Ray 02/29/20 15:23 IMPRESSION: Mild increased interstitial thickening in the parahilar regions. No consolidation or pleural effusion. Head CT 02/29/20 15:23 IMPRESSION: CHRONIC CHANGES OF ATROPHY AND MICROVASCULAR ISCHEMIA. NO ACUTE PROCESS. EVIDENCE OF ACUTE STROKE: NO. Assessment and Plan - Diagnosis (1) Orthostatic hypotension Is this a current diagnosis for this admission?: Yes (2) Orthostatic dizziness Is this a current diagnosis for this admission?: Yes (3) Weakness Is this a current diagnosis for this admission?: Yes (4) Bradycardia Is this a current diagnosis for this admission?: Yes (5) Leukocytosis Qualifiers: Leukocytosis type: unspecified Qualified Code(s): D72.829 - Elevated white blood cell count, unspecified Is this a current diagnosis for this admission?: Yes (6) Acute kidney injury superimposed on chronic kidney disease Is this a current diagnosis for this admission?: Yes (7) Aortic stenosis with trileaflet valve Is this a current diagnosis for this admission?: Yes (8) CAD (coronary artery disease) Qualifiers: Coronary Disease-Associated Artery/Lesion type: [place] artery [place] vs. transplanted heart: [place] heart Associated angina: without angina Qualified Code(s): I25.10 - Atherosclerotic heart disease of [place] coronary artery without angina pectoris Is this a current diagnosis for this admission?: Yes (9) HLD (hyperlipidemia) Qualifiers: Hyperlipidemia type: moderate mixed hyperlipidemia not requiring statin ther apy Qualified Code(s): E78.2 - Mixed hyperlipidemia Is this a current diagnosis for this admission?: Yes (10) HTN (hypertension) Qualifiers: Hypertension type: essential hypertension Qualified Code(s): I10 - Essential (primary) hypertension Is this a current diagnosis for this admission?: Yes (11) Diet-controlled diabetes mellitus Is this a current diagnosis for this admission?: Yes - Plan Summary Summary: 03/01/2020 Orthostatic hypotension/dizziness: Fall in 10mmHg diastolic pressure Orthostatic pressures: Supine 140/88 -> Seared 118/85 -> Standing 131/85 Dizziness has improved with rehydration Weakness: Patient was evaluated by physical therapy, recommend continued outpatient PT. Discussed with patient and his daughter, patient's daughter request home health physical therapy. [facility] used [facility]. Bradycardia: Bradycardia with heart rate in the 50s and 40s bpm range. Patient evaluated by [facility]. Reviewed note and discussed case in detail. - EKG with mild conduction disease with first-degree AV block and IVCD. - Recommends avoiding negative inotropic medications - Recommends cardiology follow-up with outpatient Holter monitor Leukocytosis: Minimally elevated WBC 11.2 -> 10.7 CXR without consolidation, UA negative, UC no growth in 24 hours. BC pending. Patient afebrile, no sign acute infection on exam or labs thus far. Acute kidney injury superimposed on chronic kidney disease: BUN 47 (Baseline BUN ~30), Cr 2.44 (Baseline Cr ~1.60) Likely secondary to dehydration. Continue with IV fluids. Continue to monitor morning chemistries. Aortic stenosis with trileaflet mild stenosis Echo 02/29/[address] Lamar: Both the aortic and mitral valve are mildly stenotic. LVEF preserved. Discussed pt's case with Dr. Lamar. He does not believe above noted stenosis are contributing to pt's dizziness. CAD (coronary artery disease): Hx of CAD Currently asymptomatic. Resume home medications at this time HLD (hyperlipidemia) Resume home dose statin HTN (hypertension): Wednesday blood pressure readings ranging from 170/90 to 90/64 Pt not currently on BP medication as PCP reports consistently low BP readings recently. Discussed with Dr. Lamar, recommends avidance of negative iontropic medic ations. - Consider Hydralazine or Amlodipine if choose to implement home BP medications If SBP > 160 utilize Hydralazine 20mg IV. Diet-controlled diabetes mellitus: Hx of DM, not currently treating with medications Hem A1c 6.6. Given pt's age this is an acceptable A1c. No further treatment necessary at this time. - Time Time Spent with patient: 15-24 minutes Medications reviewed and adjusted accordingly: Yes Anticipated Discharge Disposition: Home, Self Care Anticipated Discharge Timeframe: within 24 hours
--- NOTE | 2020-03-01 17:01 | XCELERA REPORT ---
[address] [address] Transthoracic Echocardiogram Report Name: CORNELIO JOHNSON Age: 84 yrs Gender: Male : 1935 Patient Status: Inpatient Patient Location: [place] [address]^A Study Date: 02/29/2020 07:02 PM History: Aortic stenosis Height: 69 in Weight: 239 lb BSA: 2.2 m2 Procedure: A complete two-dimensional transthoracic echocardiogram was performed (2D, M-mode, spectral and color flow Doppler). The study was technically difficult with many images being suboptimal in quality. Reason For Study: Assess for worsening of aortic stenosis Previous Evaluation: A previous study was performed on 07/26/2014. Mild .Normal LVEF. History: Aortic stenosis Dizziness. Ordering Physician: SHAW TREJO Performed By: Madina Farooq Interpretation Summary Doppler interrogatiion of mitral valve is suboptimal. Left ventricular systolic function is normal. The Ejection Fraction estimate is 55-60% The right ventricular systolic function is normal. There is no mitral stenosis There is mild aortic stenosis There is mild pulmonary hypertension by echo There is no pericardial effusion. MMode/2D Measurements & Calculations RVDd: 2.7 cm LVIDd: 6.0 cm FS: 38.5 % Ao root diam: 3.0 cm IVSd: 1.4 cm LVIDs: 3.7 cm EDV(Teich): 179.4 ml Ao root area: 7.3 cm2 LVPWd: 1.2 cm ESV(Teich): 57.6 ml LA dimension: 4.7 cm EF(Teich): 67.9 % LVOT diam: 1.9 cm LVOT area: 2.7 cm2 Doppler Measurements & Calculations MV E max yovany: MV V2 max: MV P1/2t max yovany: Ao V2 max: 105.1 cm/sec 101.4 cm/sec 97.6 cm/sec 253.2 cm/sec MV A max yovany: MV max PG: MV P1/2t: 87.6 msec Ao max P.3 cm/sec 4.1 mmHg MVA(P1/2t): 2.5 cm2 25.7 mmHg MV E/A: 1.3 MV V2 mean: MV dec slope: Ao V2 mean: 50.0 cm/sec 173.4 cm/sec MV mean P.3 cm/sec2 Ao mean P.2 mmHg MV dec time: 0.33 sec14.2 mmHg MV V2 VTI: 34.2 cm Ao V2 VTI: 66.5 cm MVA(VTI): 1.5 cm2 AMY(I,D): 0.75 cm2 AMY(V,D): 0.85 cm2 LV V1 max PG: SV(LVOT): 49.8 ml PA V2 max: TR max yovany: 2.5 mmHg 62.2 cm/sec 283.7 cm/sec LV V1 mean PG: PA max P.5 mmHg TR max P.3 mmHg 32.2 mmHg LV V1 max: 78.9 cm/sec LV V1 mean: 52.5 cm/sec LV V1 VTI: 18.2 cm MV P1/2t-pr_phl: 87.9 msec Left Ventricle The left ventricle is normal in size. There is moderate concentric left ventricular hypertrophy. Left ventricular systolic function is normal. The Ejection Fraction estimate is 55-60%. LV diastolic function not assessed. Wall motion cannot be accurately commented on, but no definite regional wall motion abnormalities noted. Right Ventricle The right ventricle is not well visualized secondary to technical limitations. The right ventricular systolic function is normal. Atria The right atrium is normal. The left atrium is mildly dilated. There is no Doppler evidence for an interatrial shunt. Mitral Valve Calcified mitral apparatus causing mitral stenosis. There is no mitral stenosis. No significant mitral valve stenosis. There is a trace amount of mitral regurgitation. Aortic Valve The aortic valve is heavily calcified. Mean PG=14 mm Hg AoV=2.57 m/s. There is mild aortic stenosis. Tricuspid Valve The tricuspid valve is not well visualized secondary to technical limitations. There is no tricuspid stenosis. There is a mild amount of tricuspid regurgitation. Right ventricular systolic pressure is estimated to be elevated at 40-50mmHg. There is mild pulmonary hypertension by echo. Pulmonic Valve The pulmonic valve is not well visualized. Great Vessels The aortic root is normal size. Effusions There is no pericardial effusion. : SHAW TREJO Anil
[2020-03-01] MEDS: ATORVASTATIN CALCIUM 40 MG TABLET PO SCH (21:54)
[2020-03-01] MEDS: MONTELUKAST SODIUM 10 MG TABLET PO SCH (21:54)
[2020-03-02] MEDS: RINGERS SOLUTION,LACTATED 1,000 ML IV PRN (00:31)
[2020-03-02] MEDS: HEPARIN SOD (PORCINE) 5,000 UNIT/ML 1 ML VIAL SUBCUT SCH (05:21)
[2020-03-02 06:18] LABS: HEMATOCRIT 34.1 % (37.9-51.0); MEAN CORPUSCULAR HEMOGLOBIN 32.2 pg (27.0-33.4); MEAN CORPUSCULAR HGB CONC 35.1 g/dL (32.0-36.0); MEAN CORPUSCULAR VOLUME 92 fl (80-97); PLATELET COUNT 179 10^3/uL (150-450); RED BLOOD COUNT 3.72 10^6/uL (4.35-5.55); RED CELL DISTRIBUTION WIDTH 14.4 % (11.5-14.0)
[2020-03-02 06:40] LABS: ANION GAP 9 (5-19); BLOOD UREA NITROGEN 46 mg/dL (7-20); CARBON DIOXIDE 24 mmol/L (22-30); CHLORIDE 105 mmol/L (98-107); GLUCOSE 112 mg/dL (75-110); POTASSIUM 4.7 mmol/L (3.6-5.0)
--- NOTE | 2020-03-02 08:04 | PDOC DISCHARGE SUMMARY ---
Impression - Admit/DC Date/PCP Admission Date/Primary Care Provider: 02/29/20 18:39 DARRELL MARTINESAMY CALDERA Discharge Date: 03/02/20 - Discharge Diagnosis (1) Orthostatic hypotension Is this a current diagnosis for this admission?: Yes (2) Orthostatic dizziness Is this a current diagnosis for this admission?: Yes (3) Bradycardia Is this a current diagnosis for this admission?: Yes (4) Weakness Is this a current diagnosis for this admission?: Yes (5) Leukocytosis Is this a current diagnosis for this admission?: Yes (6) Acute kidney injury superimposed on chronic kidney disease Is this a current diagnosis for this admission?: Yes (7) Aortic stenosis with trileaflet valve Is this a current diagnosis for this admission?: Yes (8) CAD (coronary artery disease) Is this a current diagnosis for this admission?: Yes (9) HLD (hyperlipidemia) Is this a current diagnosis for this admission?: Yes (10) HTN (hypertension) Is this a current diagnosis for this admission?: Yes (11) Diet-controlled diabetes mellitus Is this a current diagnosis for this admission?: Yes - Assessment Summary: 03/01/2020 Orthostatic hypotension/dizziness: Fall in 10mmHg diastolic pressure Orthostatic pressures: Supine 140/88 -> Seared 118/85 -> Standing 131/85 Dizziness has improved with rehydration Weakness: Patient was evaluated by physical therapy, recommend continued outpatient PT. Discussed with patient and his daughter, patient's daughter request home health physical therapy. [facility] previously used [facility]. Bradycardia: Bradycardia with heart rate in the 50s and 40s bpm range. Patient evaluated by [facility]. Reviewed note and discussed case in detail. - EKG with mild conduction disease with first-degree AV block and IVCD. - Recommends avoiding negative inotropic medications - Recommends cardiology follow-up with outpatient Holter monitor Leukocytosis: Minimally elevated WBC 11.2 -> 10.7 CXR without consolidation, UA negative, UC no growth in 24 hours. BC pending. Patient afebrile, no sign acute infection on exam or labs thus far. Acute kidney injury superimposed on chronic kidney disease: BUN 47 (Baseline BUN ~30), Cr 2.44 (Baseline Cr ~1.60) Likely secondary to dehydration. Continue with IV fluids. Continue to monitor morning chemistries. Aortic stenosis with trileaflet mild stenosis Echo 02/29/[address] Aguilar: Both the aortic and mitral valve are mildly stenotic. LVEF preserved. Discussed pt's case with Dr. Aguilar. He does not believe above noted stenosis are contributing to pt's dizziness. CAD (coronary artery disease): Hx of CAD Currently asymptomatic. Resume home medications at this time HLD (hyperlipidemia) Resume home dose statin HTN (hypertension): Wednesday blood pressure readings ranging from 170/90 to 90/64 Pt not currently on BP medication as PCP reports consistently low BP readings recently. Discussed with Dr. Aguilar, recommends avidance of negative iontropic medications. - Consider Hydralazine or Amlodipine if choose to implement home BP medications If SBP > 160 utilize Hydralazine 20mg IV. Diet-controlled diabetes mellitus: Hx of DM, not currently treating with medications Hem A1c 6.6. Given pt's age this is an acceptable A1c. No further treatment necessary at this time. - Additional Information Resuscitation Status: Do Not Resuscitate Referrals: FOSTER AGUILAR MD [ACTIVE STAFF] - DARRELL ROBERTS FNP [Primary Care Provider] - Follow up as needed Home Medications: Acetaminophen [Tylenol] 650 mg PO Q4 07/26/14 Aspirin [Aspirin 81 mg Chewable Tablet] 81 mg PO DAILY 07/26/14 Clopidogrel Bisulfate [Plavix 75 mg Tablet] 75 mg PO DAILY 07/26/14 Pravastatin Sodium [Pravachol] 40 mg PO HSP 07/26/14 Terazosin HCl 2 mg PO BID 07/26/14 Albuterol Sulfate [Proair HFA Inhalation Aerosol 8.5 gm MDI] 1 puff IH Q4 PRN 02/29/20 Albuterol Sulfate [Ventolin 0.083% Neb 2.5 mg/3 mL Ampul] 1 vial NEB Q6 02/29/20 Fluoxetine HCl [Prozac 20 mg Capsule] 20 mg PO DAILY 02/29/20 Fluticasone/Umeclidin/Vilanter [Trelegy 100-62.5-25 Mcg Ellipta 14 Dose/Dpi] 1 each PO DAILY 02/29/20 Ipratropium/Albuterol Sulfate [Duoneb 3 ml Ampul] 3 ml NEB RTQ6 02/29/20 Linaclotide [Linzess] 72 mcg PO DAILY 02/29/20 Montelukast Sodium [Singulair 10 mg Tablet] 10 mg PO QHS 02/29/20 Clopidogrel Bisulfate [Plavix 75 mg Tablet] 75 mg PO DAILY tablet 03/02/20 Fluticasone/Umeclidin/Vilanter [Trelegy 100-62.5-25 Mcg Ellipta 14 Dose/Dpi] 1 inh IH DAILY inhaler 03/02/20 Montelukast Sodium [Singulair 10 mg Tablet] 10 mg PO QHS tablet 03/02/20 History of Present Illiness History of Present Illness: CORNELIO JOHNSON is a 84 year old male with PMHx of COPD, mild aortic stenosis, CKD, HTN, and diet controlled diabetes who presented to the ED on 02/29/2020 under his PCP's instruction as pt was found to be hypotension on presentation. Per EMS pt BP 90/50. Pt was at PCP for evaluation of dizziness and generalized weakness. Per patient he has felt dizzy for several months with a progressive increase in severity. He experiences symptoms primarily when moving from a seated position to standing position. Pt notes recent episode where he walked a short distance to the bathroom and felt so weak that he had to lower himself to the ground. Denies fall or head trauma. He is asymptomatic while at rest. He since has been using a walker to ambulate for support. He reports SOB with exertion, this is relatively new for him. Denies orthopnea or lower extremity swelling. He has had a non-productive cough for several months, denies recent illness. He does report a gradual weight gain, primarily in his abdomen, which he relates to his children feeding him too much food. Upon further questioning Denies fever, chills, chest pain, palpitations, lower extremity edema. abdominal pain, NVD, or urinary symptoms. Evaluation in the ED pt was found to have elevated WBC (11.2), and normocytic normochronic anemia with Hgb 11.9. Chemistries significant for hyponatremia (136.2), minimally elevated glucose (115), and acute kidney injury (BUN 46, Cr 2.54). Consecutive EKGs showed bradycardia with rate in 50s with accelerate junctional escape rhythm. CXR with mild increased interstitial thickening in the parahilar regions, without consolidation or pleural effusion. Head CT showed chronic changes of atrophy and microvascular ischemia, without acute changes or evidence of stroke. Pt was treated with IVF and the hospitalist team was contacted for further evaluation and treatment of patient. Pt's records from PCP were obtained and reviewed. Included in obtained reports was pt's echocardiogram from 03/29/2019 with the LVEF 55% with abnormal trileadlet aortic valve and moderate aortic stenosis. Hospital Course Hospital Course: The patient had an uneventful hospital course. His metoprolol was held and he was given IV fluids. His renal function improved significantly there is no longer orthostatic. Physical Exam Vital Signs: Temp Pulse Resp BP Pulse Ox 98.0 F 58 L 20 142/80 H 98 03/02/20 04:20 03/02/20 04:20 03/02/20 04:20 03/02/20 04:20 03/02/20 04:20 Intake & Output 03/01/20 03/02/20 03/03/20 06:59 06:59 06:59 Intake Total 2960 Output Total 200 300 Balance -200 2660 Weight 104.7 kg 107.4 kg General appearance: PRESENT: no acute distress Head exam: PRESENT: atraumatic, normocephalic Respiratory exam: PRESENT: clear to auscultation carlos a, symmetrical, unlabored. ABSENT: rales, rhonchi, tachypnea, wheezes Cardiovascular exam: PRESENT: RRR, +S1, +S2, systolic murmur GI/Abdominal exam: PRESENT: normal bowel sounds, soft. ABSENT: distended, guarding, tenderness Rectal exam: PRESENT: deferred Neurological exam: PRESENT: alert, awake, oriented to person, oriented to place, oriented to time, oriented to situation, CN II-XII grossly intact. ABSENT: altered Psychiatric exam: PRESENT: appropriate affect. ABSENT: agitated, anxious Results Laboratory Results: WBC 9.0 10^3/uL (4.0-10.5) 03/02/20 05:38 RBC 3.72 10^6/uL (4.35-5.55) L 03/02/20 05:38 Hgb 12.0 g/dL (13.5-17.0) L 03/02/20 05:38 Hct 34.1 % (37.9-51.0) L 03/02/20 05:38 MCV 92 fl (80-97) 03/02/20 05:38 MCH 32.2 pg (27.0-33.4) 03/02/20 05:38 MCHC 35.1 g/dL (32.0-36.0) 03/02/20 05:38 RDW 14.4 % (11.5-14.0) H 03/02/20 05:38 Plt Count 179 10^3/uL (150-450) 03/02/20 05:38 Lymph % (Auto) 22.4 % (13-45) 02/29/20 14:50 [place] % (Auto) 9.7 % (3-13) 02/29/20 14:50 Eos % (Auto) 1.0 % (0-6) 02/29/20 14:50 Baso % (Auto) 0.3 % (0-2) 02/29/20 14:50 Absolute Neuts (auto) 7.4 10^3/uL (1.7-8.2) 02/29/20 14:50 Absolute Lymphs (auto) 2.5 10^3/uL (0.5-4.7) 02/29/20 14:50 Absolute Monos (auto) 1.1 10^3/uL (0.1-1.4) 02/29/20 14:50 Absolute Eos (auto) 0.1 10^3/uL (0.0-0.6) 02/29/20 14:50 Absolute Basos (auto) 0.0 10^3/uL (0.0-0.2) 02/29/20 14:50 Seg Neutrophils % 66.6 % (42-78) 02/29/20 14:50 Sodium 137.8 mmol/L (137-145) 03/02/20 05:38 Potassium 4.7 mmol/L (3.6-5.0) 03/02/20 05:38 Chloride 105 mmol/L (98-107) 03/02/20 05:38 Carbon Dioxide 24 mmol/L (22-30) 03/02/20 05:38 Anion Gap 9 (5-19) 03/02/20 05:38 BUN 46 mg/dL (7-20) H 03/02/20 05:38 Creatinine 2.34 mg/dL (0.52-1.25) H 03/02/20 05:38 Est GFR ( Amer) 32 (>60) L 03/02/20 05:38 Est GFR (MDRD) Non-Af 27 (>60) L 03/02/20 05:38 Glucose 112 mg/dL (75-110) H 03/02/20 05:38 POC Glucose 125 mg/dL (70-110) H 03/02/20 07:12 Hemoglobin A1c % 6.6 % (4.7-6.0) H 03/01/20 05:32 Calcium 9.0 mg/dL (8.4-10.2) 03/02/20 05:38 Magnesium 2.1 mg/dL (1.6-2.3) 03/01/20 05:32 Total Bilirubin 0.8 mg/dL (0.2-1.3) 02/29/20 14:50 Direct Bilirubin 0.6 mg/dL (0.0-0.4) H 02/29/20 14:50 Neonat Total Bilirubin Not Reportable 02/29/20 14:50 Neonat Direct Bilirubin Not Reportable 02/29/20 14:50 Neonat Indirect Bili Not Reportable 02/29/20 14:50 AST 32 U/L (17-59) 02/29/20 14:50 ALT 46 U/L (<50) 02/29/20 14:50 Alkaline Phosphatase 56 U/L (38-126) 02/29/20 14:50 Troponin I < 0.012 ng/mL 02/29/20 14:50 Total Protein 6.4 g/dL (6.3-8.2) 02/29/20 14:50 Albumin 3.6 g/dL (3.5-5.0) 02/29/20 14:50 TSH 2.53 uIU/mL (0.47-4.68) 03/01/20 05:32 Urine Color YELLOW 02/29/20 21:18 Urine Appearance CLEAR 02/29/20 21:18 Urine pH 6.0 (5.0-9.0) 02/29/20 21:18 Ur Specific [place] 1.011 02/29/20 21:18 Urine Protein NEGATIVE mg/dL (NEGATIVE) 02/29/20 21:18 Urine Glucose (UA) NEGATIVE mg/dL (NEGATIVE) 02/29/20 21:18 Urine Ketones NEGATIVE mg/dL (NEGATIVE) 02/29/20 21:18 Urine Blood NEGATIVE (NEGATIVE) 10/15/20 21:18 Urine Nitrite NEGATIVE (NEGATIVE) 02/29/20 21:18 Urine Bilirubin NEGATIVE (NEGATIVE) 02/29/20 21:18 Urine Urobilinogen NEGATIVE mg/dL (<2.0) 02/29/20 21:18 Ur Leukocyte Esterase NEGATIVE (NEGATIVE) 02/29/20 21:18 Urine WBC (Auto) 0 /HPF 02/29/20 21:18 Urine Mucus (Auto) RARE /LPF 02/29/20 21:18 Urine Ascorbic Acid NEGATIVE (NEGATIVE) 02/29/20 21:18 02/29/20 14:50 Troponin I < 0.012 Impressions: Chest X-Ray 02/29/20 15:23 IMPRESSION: Mild increased interstitial thickening in the parahilar regions. No consolidation or pleural effusion. Head CT 02/29/20 15:23 IMPRESSION: CHRONIC CHANGES OF ATROPHY AND MICROVASCULAR ISCHEMIA. NO ACUTE PROCESS. EVIDENCE OF ACUTE STROKE: NO. Plan Health Concerns: Orthostasis in an elderly patient who lives alone Plan of Treatment: Hold metoprolol but continue other medications. The patient needs to drink at least 2 L of fluid daily. He might consider taking his pulse and blood pressure at home if he is not already doing so. Goals: Adjust medication regimen to avoid recurrent episodes Time Spent: Greater than 30 Minutes Stroke Is this a Stroke Patient?: No Acute Heart Failure Is this a Heart Failure Patient?: No
[2020-03-02] MEDS: FLUTICASONE/UMECLIDIN/VILANTER 100-62.5-25 MCG/DOSE IH SCH (09:54)
[2020-03-02] MEDS: CLOPIDOGREL BISULFATE 75 MG TABLET PO SCH (09:54)
[2020-03-02] MEDS: ASPIRIN 81 MG TABLET, CHEWABLE PO SCH (09:54)
[2020-03-02 09:57] VITALS: BP 150/78
== END 2020-03-02 10:25 | disposition home or self-care (01) | DRG 312 ==
LOC: ER 14:36 → EH 18:39 → 4S 21:00
PROVIDERS: ADMIT Hospitalist; ATTEND Hospitalist
PROC: B24BZZZ Ultrasonography of Heart with Aorta (ICD-10-PCS; principal; 2020-02-29)
DX: I95.1 Orthostatic hypotension (principal); E87.1 Hypo-osmolality and hyponatremia; N17.9 Acute kidney failure, unspecified; J44.9 Chronic obstructive pulmonary disease, unspecified; I35.0 Nonrheumatic aortic (valve) stenosis; I12.9 Hypertensive chronic kidney disease with stage 1 through stage 4 chronic kidney disease, or unspecified chronic kidney disease; E11.22 Type 2 diabetes mellitus with diabetic chronic kidney disease; N18.9 Chronic kidney disease, unspecified; D64.9 Anemia, unspecified; E86.0 Dehydration; I25.10 Atherosclerotic heart disease of native coronary artery without angina pectoris; Z66 Do not resuscitate; R00.1 Bradycardia, unspecified; D72.829 Elevated white blood cell count, unspecified; E78.2 Mixed hyperlipidemia; Z79.82 Long term (current) use of aspirin; Z82.49 Family history of ischemic heart disease and other diseases of the circulatory system; Z79.899 Other long term (current) drug therapy; Z87.891 Personal history of nicotine dependence; Z79.51 Long term (current) use of inhaled steroids; Z79.02 Long term (current) use of antithrombotics/antiplatelets; Z60.2 Problems related to living alone
CPT/HCPCS: 36415; 70450; 71045; 80048; 80053; 81001; 82962; 83036; 83735; 84443; 84484; 85025; 85027; 87040; 87086; 93005; 93010; 93306; 99285; J0360; J1644; J3490; J7120